=== PATIENT | male | born 1985 | race Two or more races ===

== ENCOUNTER 2025-04-15 11:44 | Inpatient (IN) | payer MEDICAID ==
[~2025-04-15] VITALS: Ht 185.4 cm; Wt 97.3 kg
--- NOTE | 2025-04-15 11:59 | ED.PDOC ---
History of Present Illness HPI Comments 40-year-old male brought by paramedics because of left lower extremity swelling which started three days ago progressively getting worse. Patient was seen here yesterday for the same symptoms for which he left against medical advice. He denies any history of hypertension diabetes. He does have a history of swelling of his left lower extremity for many years on and off uses after every three months the redness and swelling reappears. Denies shortness a breath chest pain. Denies any other symptoms. Time Seen by MD: 11:50 Primary Care Provider: OC Reviewed Notes: Nurses Notes, Medications, Allergies Allergies: Coded Allergies: NO KNOWN ALLERGIES (Unverified , 11/26/20) Information Source: Patient, Emergency Med Personnel Mode of Arrival: EMS Severity: Moderate Timing: Days Duration: Since onset Past Medical History PAST MEDICAL HISTORY: Denies Surgical History: Denies all surgeries Social History Smoker: Non-Smoker Alcohol: Denies ETOH Use Drugs: Denies Drug Use Constitutional: denies: chills, diaphoresis, fatigue, fever, malaise, sweats, weakness, others EENTM: denies: blurred vision, double vision, ear bleeding, ear discharge, ear drainage, ear pain, ear ringing, eye pain, eye redness, hearing loss, mouth pain, mouth swelling, nasal discharge, nose bleeding, nose congestion, nose pain, photophobia, tearing, throat pain, throat swelling, voice changes, others Respiratory: denies: cough, hemoptysis, orthopnea, SOB at rest, shortness of breath, SOB with excertion, stridor, wheezing, others Cardiovascular: denies: chest pain, dizzy spells, diaphoresis, Dyspnea on exertion, edema, irregular heart beat, left arm pain, lightheadedness, palpitations, PND, syncope, others Gastrointestinal: denies: abdomen distended, abdominal pain, blood streaked bowels, constipated, diarrhea, dysphagia, difficulty swallowing, hematemesis, melena, nausea, poor appetite, poor fluid intake, rectal bleeding, rectal pain, vomiting, others Genitourinary: denies: burning, dysuria, flank pain, frequency, hematuria, incontinence, penile discharge, penile sore, pain, testicle pain, testicle swelling, urgency, others Neurological: denies: dizziness, fainting, headache, left sided numbness, left sided weakness, numbness, paresthesia, pre-existing deficit, right sided numbness, right sided weakness, seizure, speech problems, tingling, tremors, weakness, others Musculoskeletal: reports: joint swelling (Left lower extremity); denies: back pain, gout, joint pain, muscle pain, muscle stiffness, neck pain, others Integumetry: denies: bruises, change in color, change in hair/nails, dryness, laceration, lesions, lumps, rash, wounds, others Allergic/Immunocompromised: denies: Difficulty Healing, Frequent Infections, Hives, Itching, others Hematologic/Lymphatic: denies: anemia, blood clots, easy bleeding, easy bruising, swollen glands, others Endocrine: denies: excessive hunger, excessive sweating, excessive thirst, excessive urination, flushing, intolerance to cold, intolerance to heat, unexplained weight gain, unexplained weight loss, others Psychiatric: denies: anxiety, bipolar disorder, depression, hopeless, panic disorder, schizophrenia, sleepless, suicidal, others Physical Exam General Appearance: Moderate Distress HEENT: Normal ENT Inspection, Pharynx Normal, TMs Normal Neck: Full Range of Motion, Non-Tender, Normal, Normal Inspection Respiratory: Chest Non-Tender, Lungs Clear, No Accessory Muscle Use, No Respiratory Distress, Normal Breath Sounds Cardiovascular: No Edema, No JVD, No Murmur, No Gallop, Normal Peripheral Pulses, Regular Rate/Rhythm Breast Exam: Deferred Gastrointestinal: No Organomegaly, Non Tender, No Pulsatile Mass, Normal Bowel Sounds, Soft Genitalia: Deferred Pelvic: Deferred Rectal: Deferred Extremities: Swelling (Left lower extremity) Musculoskeletal : Apperance: Normal Neurologic: Alert, center specialists II-XII nml as Tested, No Motor Deficits, Normal Affect, Normal Mood, No Sensory Deficits Cerebellar Function: NOT DONE Reflexes: NOT DONE Skin: Normal Color Peripheral Pulses: 3+ Radial (R), 3+ Radial (L) Lymphatic: No Adenopathy Was a procedure done? Was a procedure done?: No Differential Dx Considerations may include: Cellulitis X-Ray, Labs, Meds, VS Patient alert. Has swelling of the left lower extremity. Redness. Was seen here yesterday. Reviewed his previous visit. Establish intravenous access. Was given fluids. Was given Rocephin. Was given clindamycin. Explained to the patient. Continue monitoring. Time of 1ST Reevaluation: 11:58 Reevaluation 1ST: Unchanged Patient Education/Counseling: Diagnosis, Treatment, Prognosis Family Education/Counseling: No Family Present Departure 1 Departure Time of Disposition: :58 Impression: Primary Impression: Cellulitis Qualified Codes: L03.116 - Cellulitis of left lower limb Disposition: 09 ADMITTED INPATIENT Admit to: Med Surg Condition: Guarded Critical Care Note Critical Care Time?: Yes (90 min-critical care time only) Critical care comment: Swollen extremity continue antibiotics Stability Stability form required: No Heart Score Heart Score: Heart Score Response (Comments) Value History N/A 0 EKG N/A 0 Age N/A 0 Risk Factors N/A 0 Troponin N/A 0 Total 0 EVANGELINA LEÓN MD Apr 15, 2025 11:59
[2025-04-15] MEDS: SODIUM CHLORIDE 0.9% 1,000 ML IV ONE ×2 (12:00→14:03)
[2025-04-15 12:38] VITALS: PULSE 84; RESP 18
[2025-04-15] MEDS: cefTRIAXone 1GM/50ML D5W 50 ML IV ONE (13:23)
[2025-04-15 13:35] LABS: Hematocrit 34.1 % (41.0-53.0); Hemoglobin 11.8 g/dL (13.5-17.5); Mean Corpuscular Hemoglobin 30.1 pg (28.0-32.0); Mean Corpuscular Volume 87.0 fL (80.0-100.0); Nucleated Red Blood Cells % 0.0 %
[2025-04-15 13:42] LABS: Chloride 101 mmol/L (98-107); Potassium 3.6 mmol/L (3.5-5.1)
[2025-04-15 13:43] LABS: Anion Gap 8 (5-15); Calcium 8.9 mg/dL (8.7-10.4); Carbon Dioxide 26 mmol/L (20-31)
[2025-04-15] MEDS: MORPHINE SULFATE 4 MG/ML SYR/VIAL IV ONE (13:43)
[2025-04-15] MEDS: ONDANSETRON HCL 4 MG/2 ML VIAL IV ONE (13:43)
[2025-04-15 13:48] LABS: BUN/Creatinine Ratio 14.2 (10.0-20.0); Blood Urea Nitrogen 15 mg/dL (9-23); Glucose 99 mg/dL (74-106)
[2025-04-15 13:53] LABS: Sodium 135 mmol/L (136-145)
[2025-04-15] MEDS: CLINDAMYCIN 600MG IV 50 ML IV ONE (14:02)
[2025-04-15 22:02] VITALS: RESP 18
[2025-04-15] MEDS: ACETAMINOPHEN 325 MG TAB PO ONE (22:42)
--- NOTE | 2025-04-15 23:34 | DVHHP2 ---
History of Present Illness History of Present Illness This is a 40-year-old male with no past medical history came to ER with the complain of left lower extremity swelling for 1 month which is worsen for last 4 days. Since yesterday morning patient having intractable pain left lower extremity which is 10/10, localized, heavy sensation, aggravated on hanging and weight-bearing especially during walking and little relief of pain when put his leg on bed/chair. Patient left yesterday with AMA. Patient stated that left lower extremity pain is also associated with swelling and increased redness day by day. Patient noticed she had similar symptoms before approximately 8 years ago and getting better after treatment. Symptoms also associated with malaise, fatigue, generalized weakness, loss of appetite. Patient using fentanyl snoring every day. Currently denies any headache, chest pain, SOB, headache, abdominal pain, dysuria. Denies any recent history of trauma, injury, MVA, no recent sick contact. Past Medical History: Denies Surgical History: Denies all surgeries Social History Smoker: Smoking cigarettes ,5 stick per day Alcohol: Denies ETOH Use Drugs: use fentanyl smoking Allergy: No known allergy PCP: Not selected Review of Systems Constitutional: Yes: Weakness, Malaise; No: Fever, Chills, Sweats, Other Eyes: No: Pain, Vision change, Conjunctivae inflammation, Eyelid inflammation, Other, Redness ENT: No: Ear pain, Ear discharge, Nose pain, Nose discharge, Nose congestion, Mouth pain, Mouth swelling, Throat pain, Throat swelling, Other Respiratory: No: Cough, Dry, Shortness of breath, SOB with excertion, Wheezing, Hemoptysis, Pleuritic Pain, Sputum, Wheezing, Other Cardiovascular: Other; No: Chest Pain, Palpitations, Orthopnea, Paroxysmal Noc. Dyspnea, Edema, Lt Headedness Gastrointestinal: Nausea; No: Vomiting, Abdominal Pain, Diarrhea, Constipation, Melena, Hematochezia, Other Genitourinary: No Dysuria, No Frequency, No Incontinence, No Hematuria, No Retention, No Other Musculoskeletal: leg pain (Left leg pain associated swelling), foot pain; No: other, neck pain, shoulder pain, arm pain, back pain, hand pain Skin: Rash, Other (Erythematous lesion left lower extremity); No: Lesions, Jaundice, Bruising Neurological: No: Weakness, Numbness, Incoordination, Change in speech, Confusion, Seizures, Other Allergies: Coded Allergies: NO KNOWN ALLERGIES (Unverified , 11/26/20) Exam Vital Signs Vital Signs Date Time Temp Pulse Resp B/P (MAP) Pulse Ox O2 Delivery O2 Flow Rate FiO2 04/15/25 22:42 100.4 04/15/25 22:14 75 18 99/47 (64) 100 04/15/25 22:02 Room Air* 0 21 General Appearance: Alert, Oriented X3, Cooperative HEENT: Atraumatic, PERRLA, EOMI Respiratory: Clear to auscultation Cardiovascular: Regular rate, Normal S1, Normal S2 Abdominal: Normal bowel sounds, Soft, No tenderness, No hepatospenomegaly Extremities: No clubbing, No cyanosis, Normal pulses, Other (Left lower extremity swelling and erythematous lesion, 1+ pitting edema left lower extremity, tender on palpation, local raise of temperature) Neuro: Normal speech, Strength at 5/5 X4 ext, Other Labs/Xrays Labs Test 04/15/25 13:22 Range/Units White Blood Count 8.4 4.4-10.8 10^3/uL Red Blood Count 3.92 L 4.5-5.90 10^6/uL Hemoglobin 11.8 L 13.5-17.5 g/dL Hematocrit 34.1 L 41.0-53.0 % Mean Corpuscular Volume 87.0 80.0-100.0 fL Mean Corpuscular Hemoglobin 30.1 28.0-32.0 pg Mean Corpuscular Hemoglobin Concent 34.5 32.0-36.0 g/dL Red Cell Distribution Width 13.3 11.8-14.3 % Platelet Count 228 140-450 10^3/uL Mean Platelet Volume 8.5 6.9-10.8 fL Neutrophils (%) (Auto) 81.5 H 37.0-80.0 % Lymphocytes (%) (Auto) 7.8 L 10.0-50.0 % Monocytes (%) (Auto) 10.4 0.0-12.0 % Eosinophils (%) (Auto) 0.0 0.0-7.0 % Basophils (%) (Auto) 0.3 0.0-2.0 % Neutrophils # (Auto) 6.9 1.6-8.6 10 ^3/uL Lymphocytes # (Auto) 0.7 0.4-5.4 10 ^3/uL Monocytes # (Auto) 0.9 0-1.3 10 ^3/uL Eosinophils # (Auto) 0 0-0.8 10 ^3/uL Basophils # (Auto) 0 0-0.2 10 ^3/uL Nucleated Red Blood Cells 0.0 % Sodium Level 135 L 136-145 mmol/L Potassium Level 3.6 3.5-5.1 mmol/L Chloride Level 101 98-107 mmol/L Carbon Dioxide Level 26 20-31 mmol/L Anion Gap 8 5-15 Blood Urea Nitrogen 15 9-23 mg/dL Creatinine 1.06 0.700-1.30 mg/dL Glomerular Filtration Rate Calc 92 >90 mL/min BUN/Creatinine Ratio 14.2 10.0-20.0 Serum Glucose 99 74-106 mg/dL Lactic Acid Level 1.0 0.4-2.0 mmol/L Calcium Level 8.9 8.7-10.4 mg/dL SEPSIS Sepsis Screen Date sepsis recognized/suspect: Apr 15, 2025 Time Sepsis recognized/suspect: 2204 Recent Procedure: No On Antibiotic Therapy: No Respiratory Rate >20: No Heart Rate >90: No Temp<36 C (96.8 F) or >38.3 C: No SBP <90 or MAP <65 mmHG: No New Acute Mental Status Change: No Is the patient on CPAP, BIPAP,: No Vital Signs Date Time Temp Pulse Resp B/P (MAP) Pulse Ox O2 Delivery O2 Flow Rate FiO2 04/15/25 22:42 100.4 04/15/25 22:14 100.4 75 18 99/47 (64) 100 100.4 04/15/25 22:02 18 Room Air* 0 21 04/15/25 19:18 74 16 102/59 (73) 98 04/15/25 17:47 79 04/15/25 17:34 73 18 109/66 (80) 99 Laboratory Tests Test 04/15/25 13:22 Lactic Acid Level 1.0 mmol/L (0.4-2.0) White Blood Count 8.4 10^3/uL (4.4-10.8) Medications Medications Dose Ordered Sig/Alessandro Route Start Time Stop Time Status Last Admin Dose Admin Acetaminophen 650 mg ONCE ONCE PO 04/15/25 22:15 04/15/25 22:16 DC 04/15/25 22:42 650 MG Ceftriaxone Sodium 50 ml @ 100 mls/hr ONCE ONCE IV 04/15/25 12:00 04/15/25 12:29 DC 04/15/25 13:23 100 MLS/HR Clindamycin Phosphate 50 ml @ 50 mls/hr ONCE ONCE IV 04/15/25 12:00 04/15/25 12:59 DC 04/15/25 14:02 50 MLS/HR Morphine Sulfate 4 mg ONCE ONCE IV 04/15/25 13:30 04/15/25 13:31 DC 04/15/25 13:43 4 MG Ondansetron HCl 4 mg ONCE ONCE IV 04/15/25 13:30 04/15/25 13:31 DC 04/15/25 13:43 4 MG Sodium Chloride 1,000 ml @ 150 mls/hr Q6H40M ONCE IV 04/15/25 12:00 04/15/25 18:39 DC 04/15/25 14:03 150 MLS/HR Sodium Chloride 1,000 ml @ 1,000 mls/hr Q1H ONCE IV 04/15/25 12:00 04/15/25 12:59 DC 04/15/25 12:00 1,000 MLS/HR Assessment/Plan Assessment/Plan # Left lower extremity cellulitis -Patient came with left lower extremity swelling and pain -On examination tender on palpation, erythematous, local swelling present. -No leukocytosis but left-shifted(neutrophil 81.5) -In ER, received clindamycin, ceftriaxone, NSS, morphine, ondansetron -CXR-no cardiopulmonary active disease -CT left lower extremity without contrast: Diffuse subcutaneous soft-tissue edema and swelling is present; possibly cellulitis. -Lactic acid 1.0 -Zosyn IV and vancomycin IV. -NSS 125 cc/hours -Urine culture and blood culture follow -A1c, lipid profile, THS, PT PTT, BNP -Venous Dopplex LLE. # Normocytic normochromic Anemia -Hemoglobin level 11.8, HCT 34.1 -MCH 30.1, MCV 87.0 -No signs symptoms of active bleeding # Substance abuse disorder -Smoking cigarettes ,5 stick per day -Use fentanyl snoring, last use yesterday -patient planning to go rehab -Counseling done more than 10 minute spent. # OBESITY, BMI 28.6 -Lifestyle modification Diet: Regular GI prophylaxis: Famotidine 20 mg p.o. b.i.d. DVT prophylaxis: Lovenox 30 mg sc daily. Goals of care discussions, more than 27 minute spent with the patient. Full code status. Case discussed with Dr. Medina Plan discussed with: Patient, Other (Nurse) Date of Service: Apr 15, 2025 Billing Provider: JOON MEDINA MD Common Visit Codes: [id number] INP/OBS CARE (HIGH) Secondary Visit Codes: 74901-[id number] CARE PLAN 30 MINUTES HEBERT RODRIGUEZ RESIDENT Apr 15, 2025 23:34
[2025-04-15] MEDS ORDERED: NITROGLYCERIN 0.4 MG SL TAB SL PRN (23:45)
[2025-04-15] MEDS ORDERED: MORPHINE SULFATE INJ 2 MG/ml SYRG IV PRN (23:45)
[2025-04-16] VITALS (8 sets, daily range): BP systolic 95–114; BP diastolic 53–84; PULSE 58–65; RESP 16–18; TEMP 97.9–99.4; O2SAT 95–100
[2025-04-16] MEDS ORDERED: VANCOMYCIN PER PHARMACY 0 MG IV SCH (00:30)
[2025-04-16] MEDS: SODIUM CHLORIDE 0.9% 1,000 ML IV SCH (00:39)
--- NOTE | 2025-04-16 01:13 | DVH ---
CHEST RADIOGRAPH Indication: Rule out cardiopulmonary disease Technique: Single frontal view of the chest was obtained COMPARISON: None FINDINGS: Lines and Tubes: None Lungs: Clear Pleura: No effusion. No pneumothorax. Cardiomediastinal contours: Unremarkable Bones: Unremarkable IMPRESSION: 1. No acute disease.
[2025-04-16 03:35] LABS: Urine Protein, UAD Negative (Negative)
[2025-04-16] MEDS: PIPERACILLIN-TAZOB 3.375GM 100 ML IV SCH (05:17)
--- NOTE | 2025-04-16 05:31 | DVH ---
INDICATION: Left lower extremity cellulitis COMPARISON: None TECHNIQUE: CT of the left lower extremity was performed without contrast. Volume transverse images we re obtained and reconstructed in multiple planes using bone and soft tissue algorithms. Radiation Dose Information: CT Dose: CTDI volume is 7.75 mGy. Dose-length product is 437.6 mGy*cm FINDINGS: The alignment is normal. The joint spaces are normal. There is no fracture, dislocation or aggressive osseous lesion. There is no joint effusion. Diffuse subcutaneous soft-tissue edema and swelling. IMPRESSION: Diffuse subcutaneous soft-tissue edema and swelling is present; possibly cellulitis.
--- NOTE | 2025-04-16 08:44 | DVH ---
Clinical History: Left lower extremity swelling Comparison: None Technique: Duplex Doppler evaluation of the deep venous system of the left lower extremity from the common femor al vein to the popliteal vein including color Doppler and spectral/pulsed waveform analysis was perfo rmed. Findings: The common femoral vein demonstrates appropriate compressibility and waveform variability. There is compressibility/patency of the great saphenous vein at the proximal thigh. The femoral vein demonstrates appropriate compressibility and waveform variability. The deep femoral vein demonstrates appropriate compressibility and waveform variability. The popliteal vein demonstrates appropriate compressibility and waveform variability. There is normal compressibility at the tibioperoneal trunk. Impression: No leftdeep venous thrombosis. If clinical concern/symptoms persist or worsen, short-interval follow-up study is suggested.
--- NOTE | 2025-04-16 10:49 | DVHPNRES ---
Progress Note Date Seen: Apr 16, 2025 Resident Creating Document: NIKO MAYER RESIDENT Medical Necessity Reason Pt with a Central, PICC or Fol: No Subjective Review of Systems Kali Altamirano is a 40-year-old male with no significant past medical or surgical history. He came to ER with the complain of left lower extremity swelling for 1 month which is worsening for last 4 days. The swelling started from the left foot and has increased to involve left leg up to the knees. Since yesterday morning he is experiencing intractable pain left lower extremity. The pain is 10/10, localized, heavy sensation, aggravated on walking and weight- bearing; Without relieving factors. He visited the emergency department yesterday and left yesterday with AMA. He experienced an episode of SOB and chest pain due to the pain in the lower extremity. He started having lower limb swelling since last 8 years, which resolves on its own. Has been having these recurring episodes every few years. He reports since last year, episodes have been every few months. Symptoms are associated with malaise, fatigue, generalized weakness, loss of appetite. He reports using fentanyl every day. He denies any headache, fever, abdominal pain, dysuria. Denies any recent history of trauma, injury, animal bite, or travel. In ED, he received clindamycin, ceftriaxone, NSS, morphine, ondansetron He was examined at bedside today. He continues to complain of pain, increased swelling and redness. CT lower extremity shows subcutaneous soft tissue edema, swelling. CXR shows no abnormality. Doppler US lower extremity revealed no thrombosis. Personal history: Smokes fentanyl, reports no other recreational drug use. Occasionally smokes marijuana. Smokes 4-5 cigarettes per day, does not use alcohol. Lives at home with his father. Past History: Gout (no home medications) ROS: Constitutional: Denies weight loss, fever and chills. HEENT: Denies changes in vision and hearing. Respiratory: Denies shortness of breath and cough Cardiovascular: Denies chest discomfort or palpitations GI: Denies abdominal pain, nausea, vomiting and diarrhea. : Denies dysuria and urinary frequency. Musculoskeletal: Pain in left lower extremity under the knee. Associated with swelling, redness. Skin: Complains of intense age on the left foot and leg Neurological: Denies dizziness, headache, vision or hearing problems Objective vital signs Vital Sign Date Time Temp Pulse Resp B/P (MAP) Pulse Ox O2 Delivery O2 Flow Rate FiO2 04/16/25 09:30 98.5 58 16 105/65 (78) 99 98.5 04/16/25 02:52 Room Air* 0 21 Total Intake and Output 04/15/25 04/15/25 04/16/25 15:00 23:00 07:00 Intake Total 1050 ml 800 ml 0 ml Balance 1050 ml 800 ml 0 ml medications Current Medications Medications Dose Ordered Sig/Alessandro Route Start Time Stop Time Status Last Admin Dose Admin Nitroglycerin 0.4 mg Q5MINP PRN SL 04/15/25 23:45 Morphine Sulfate 2 mg Q30M PRN IV 04/15/25 23:45 Sodium Chloride 1,000 ml @ 125 mls/hr Q8H IV 04/15/25 23:45 04/16/25 00:39 125 MLS/HR Enoxaparin Sodium 40 mg DAILY SC 04/16/25 10:00 Piperacillin Sod/ Tazobactam Sod 100 ml @ 25 mls/hr Q8HR IV 04/16/25 06:00 04/16/25 05:17 25 MLS/HR Vancomycin HCl 0 ml @ 0 mls/hr UD IV 04/16/25 00:30 Famotidine 20 mg Q12HR PO 04/16/25 10:00 Vancomycin HCl 150 ml @ 150 mls/hr Q8H IV 04/16/25 13:00 Examination General: Patient alert and oriented in person, place and time. Patient following commands. HEENT: Normocephalic, atraumatic, moist mucous membranes Respiratory/pulmonary: Clear lungs bilaterally, no associated crackles or wheezes. Cardiovascular: Normal heart sounds S1 and S2 with no associated murmurs Abdomen: Abdomen nondistended, there is no pain to palpation in any of the abdominal quadrants, no palpable masses. Extremities: Left foot and leg swelling, erythema, tenderness. Right foot appears normal. Skin: Multiple scratch wounds, dry skin on left foot and leg. Healing scab wound on the left malleolus. Neurological: Intact cranial nerves with no focal neurologic deficits laboratory and microbiology Laboratory Tests 04/15/25 13:22 Test 04/15/25 13:22 Range/Units Serum Glucose 99 74-106 mg/dL Problem List/Assessment/Plan Problem List/Assessment/Plan #Left lower extremity cellulitis -Fever Temprature: 100.4 -Tachypnea, RR 20 -No leukocytosis but left-shifted(neutrophil 81.5) -CXR-no cardiopulmonary active disease -CT left lower extremity without contrast reveals diffuse subcutaneous soft- tissue edema and swelling is present; possibly cellulitis. -A1c, lipid profile, THS, PT PTT, BNP -Venous Dopplex LLE negative for thrombosis. -Continue IV fluids and pain management -Continue IV vancomycin -Switch Zosyn to IV ceftriaxone -Urine culture and blood culture pending #Normocytic normochromic Anemia -Hemoglobin level 11.8, HCT 34.1 -MCH 30.1, MCV 87.0 -No signs symptoms of active bleeding #Substance abuse disorder -Use fentanyl smoking, last used yesterday. Patient planning to go rehab. -Counseling done on patient's bedside. -Drug screen pending #Obesity, with BMI 28.6 -Lifestyle modification Goals of care discussions, more than 35 minute spent with the patient. Full code Case discussed with Dr. Alston GI prophylaxis: Famotidine 20 mg DVT prophylaxis: Lovenox 30 mg Plan discussed with: Patient NIKO MAYER RESIDENT Apr 16, 2025 10:49
[2025-04-16] MEDS: ENOXAPARIN SOD 40 MG/0.4 ML SYRINGE SC SCH (11:14)
[2025-04-16] MEDS: FAMOTIDINE 20 MG TAB PO SCH (11:14)
[2025-04-16] MEDS: VANCOMYCIN 750mg/150ml 150 ML IV SCH (15:25)
[2025-04-16] MEDS ORDERED: ACETAMINOPHEN 325 MG TAB PO PRN (16:45)
[2025-04-16] MEDS ORDERED: IBUPROFEN 600 MG TAB PO SCH (16:45)
[2025-04-16] MEDS ORDERED: KETOROLAC TROMETH 30 MG/ML 1ML VIAL IV PRN (16:45)
[2025-04-16] MEDS ORDERED: IBUPROFEN 600 MG TAB PO PRN (17:45)
[2025-04-16] MEDS ORDERED: LORazepam 0.5 MG TAB PO PRN (17:45)
[2025-04-16] MEDS: DICYCLOMINE HCL 10 MG CAP PO SCH (17:57)
[2025-04-16] MEDS: PANTOPRAZOLE 40 MG/10 ML VIAL INJ IV SCH (17:58)
[2025-04-16] MEDS: cefTRIAXone 1GM/50ML D5W 50 ML IV SCH (17:58)
[2025-04-16 19:15] LABS: Hematocrit 30.8 % (41.0-53.0); Hemoglobin 10.5 g/dL (13.5-17.5); Mean Corpuscular Hemoglobin 29.8 pg (28.0-32.0); Mean Corpuscular Volume 87.7 fL (80.0-100.0); Nucleated Red Blood Cells % 0.1 %
[2025-04-16 19:38] LABS: Alanine Aminotransferase 28 U/L (7-40); Albumin 3.7 g/dL (3.2-4.8); Alkaline Phosphatase 108 U/L (46-116); Anion Gap 8 (5-15); BUN/Creatinine Ratio 9.5 (10.0-20.0); Calcium 9.3 mg/dL (8.7-10.4); Carbon Dioxide 26 mmol/L (20-31); Chloride 105 mmol/L (98-107); Potassium 3.9 mmol/L (3.5-5.1); Sodium 139 mmol/L (136-145); Total Protein 6.7 g/dL (5.7-8.2)
[2025-04-16 19:39] LABS: Bilirubin, Total 0.6 mg/dL (0.2-1.0)
[2025-04-16 19:40] LABS: Blood Urea Nitrogen 8 mg/dL (9-23); Glucose 126 mg/dL (74-106)
[2025-04-16 19:42] LABS: Triglycerides 103 mg/dL (< 150)
[2025-04-16 19:44] LABS: Cholesterol 116 mg/dL (< 200)
[2025-04-16 19:48] LABS: HDL Cholesterol 18 mg/dL (40-59)
[2025-04-16] MEDS: HYDROcodone-ACET 5/325MG TAB PO SCH (20:00)
[2025-04-16 21:52] LABS: Opiate Scree,Urine Neg (NEGATIVE)
[2025-04-16 21:53] LABS: Cannabinoid Screen, Urine Pos (NEGATIVE)
[2025-04-16 21:55] LABS: Amphetamine Screen, Urine Pos (NEGATIVE); Barbiturate Scree,Urine Neg (NEGATIVE); Benzodiazephine Screen, Urine Neg (NEGATIVE); Cocaine Screen, Urine Neg (NEGATIVE); Phencyclidine Screen, Urine Neg (NEGATIVE)
[2025-04-17] VITALS (8 sets, daily range): BP systolic 93–126; BP diastolic 45–74; PULSE 41–71; RESP 16–18; TEMP 97.8–98.9; O2SAT 17–100
[2025-04-17] MEDS ORDERED: VANCOMYCIN 750mg/150ml 150 ML IV SCH (15:00)
[2025-04-17] MEDS: VANCOMYCIN 750mg/150ml 150 ML IV SCH (15:17)
--- NOTE | 2025-04-17 18:34 | DVHPNRES ---
Progress Note Date Seen: Apr 17, 2025 Resident Creating Document: NIKO MAYER RESIDENT Medical Necessity Reason Pt with a Central, PICC or Fol: No Subjective Review of Systems Kali Altamirano is a 40-year-old male with no significant past medical or surgical history. He came to ER with the complain of left lower extremity swelling for 1 month which is worsening for last 4 days. The swelling started from the left foot and has increased to involve left leg up to the knees. Since yesterday morning he is experiencing intractable pain left lower extremity. The pain is 10/10, localized, heavy sensation, aggravated on walking and weight- bearing; Without relieving factors. He visited the emergency department yesterday and left yesterday with AMA. He experienced an episode of SOB and chest pain due to the pain in the lower extremity. He started having lower limb swelling since last 8 years, which resolves on its own. Has been having these recurring episodes every few years. He reports since last year, episodes have been every few months. Symptoms are associated with malaise, fatigue, generalized weakness, loss of appetite. He reports using fentanyl every day. He denies any headache, fever, abdominal pain, dysuria. Denies any recent history of trauma, injury, animal bite, or travel. In ED, he received clindamycin, ceftriaxone, NSS, morphine, ondansetron 04/16/25: He continues to complain of pain, increased swelling and redness. CT lower extremity shows subcutaneous soft tissue edema, swelling. Marked the lower extremity with a marker to monitor size over time. CXR shows no abnormality. Doppler US lower extremity revealed no thrombosis. Personal history: Smokes fentanyl, reports no other recreational drug use. Occasionally smokes marijuana. Smokes 4-5 cigarettes per day, does not use alcohol. Lives at home with his father. Past History: Gout (no home medications) 04/17/25: He was examined at bedside today. Complains of withdrawal from fentanyl, is experiencing body aches. His pain has reduced since yesterday, complains of 4 on 10 pain in the left lower extremity. Erythema appears to be reduced from yesterday. Labs show hemoglobin down to 10.5, BUN 8, glucose 126. Toxicology shows fentanyl, amphetamines, cannabinoids. Urine analysis WNL. ROS: Constitutional: Denies weight loss, fever and chills. HEENT: Denies changes in vision and hearing. Respiratory: Denies shortness of breath and cough Cardiovascular: Denies chest discomfort or palpitations GI: Denies abdominal pain, nausea, vomiting and diarrhea. : Denies dysuria and urinary frequency. Musculoskeletal: Pain in left lower extremity under the knee. Associated with swelling, redness. Skin: Complains of intense age on the left foot and leg Neurological: Denies dizziness, headache, vision or hearing problems Objective vital signs Vital Sign Date Time Temp Pulse Resp B/P (MAP) Pulse Ox O2 Delivery O2 Flow Rate FiO2 04/17/25 17:19 98.2 41 18 111/63 (79) 99 98.2 04/17/25 08:00 Room Air* 0 21 Total Intake and Output 04/16/25 04/16/25 04/17/25 15:00 23:00 07:00 Intake Total 330 ml 1150 ml 650 ml Output Total 900 ml 1200 ml Balance 330 ml 250 ml -550 ml medications Current Medications Medications Dose Ordered Sig/Alessandro Route Start Time Stop Time Status Last Admin Dose Admin Nitroglycerin 0.4 mg Q5MINP PRN SL 04/15/25 23:45 Sodium Chloride 1,000 ml @ 125 mls/hr Q8H IV 04/15/25 23:45 04/17/25 15:17 125 MLS/HR Enoxaparin Sodium 40 mg DAILY SC 04/16/25 10:00 04/17/25 09:37 40 MG Vancomycin HCl 0 ml @ 0 mls/hr UD IV 04/16/25 00:30 Ceftriaxone Sodium 50 ml @ 100 mls/hr DAILY@09 IV 04/16/25 14:30 04/17/25 09:37 100 MLS/HR Pantoprazole Sodium 40 mg DAILY IV 04/16/25 16:45 04/17/25 09:37 40 MG Ketorolac Tromethamine 15 mg Q8HP PRN IV 04/16/25 16:45 04/21/25 16:44 Dicyclomine HCl 20 mg QID PO 04/16/25 16:45 04/17/25 12:03 20 MG Acetaminophen 325 mg Q4HP PRN PO 04/16/25 16:45 Ibuprofen 600 mg BID PRN PO 04/16/25 17:45 Acetaminophen/ Hydrocodone Bitart 1 tab Q8HR PO 04/16/25 20:00 04/17/25 14:01 1 TAB Lorazepam 1 mg Q8HP PRN PO 04/16/25 17:45 Vancomycin HCl 150 ml @ 150 mls/hr Q8H IV 04/17/25 15:00 04/17/25 15:17 150 MLS/HR Baclofen 10 mg DAILY PO 04/17/25 22:00 Examination General: Patient alert and oriented in person, place and time. Patient following commands. HEENT: Normocephalic, atraumatic, moist mucous membranes Respiratory/pulmonary: Clear lungs bilaterally, no associated crackles or wheezes. Cardiovascular: Normal heart sounds S1 and S2 with no associated murmurs Abdomen: Abdomen nondistended, there is no pain to palpation in any of the abdominal quadrants, no palpable masses. Extremities: Left foot and leg swelling, erythema, tenderness. Right foot appears normal. Skin: Multiple scratch wounds, dry skin on left foot and leg. Healing scab wound on the left malleolus. Neurological: Intact cranial nerves with no focal neurologic deficits laboratory and microbiology Laboratory Tests 04/16/25 18:50 Test 04/16/25 18:50 Range/Units Serum Glucose 126 H 74-106 mg/dL Microbiology Date/Time Source Procedure Growth Status 04/16/25 02:51 Voided Urine Urine Culture - Preliminary Resulted 04/15/25 13:22 Blood Blood Culture - Preliminary NO GROWTH AFTER 48 HOURS OF INCUBATION. Resulted Problem List/Assessment/Plan Problem List/Assessment/Plan #Left lower extremity cellulitis -Fever Temprature: 100.4 -Tachypnea, RR 20 -No leukocytosis but left-shifted(neutrophil 81.5) -CXR-no cardiopulmonary active disease -CT left lower extremity without contrast reveals diffuse subcutaneous soft- tissue edema and swelling is present; possibly cellulitis. -A1c, lipid profile, THS, PT PTT, BNP -Venous Dopplex LLE negative for thrombosis. -Continue IV fluids and pain management -Continue IV vancomycin -Switch Zosyn to IV ceftriaxone -Urine culture and blood culture pending #Normocytic normochromic Anemia -Hemoglobin level 11.8, HCT 34.1 -MCH 30.1, MCV 87.0 -No signs symptoms of active bleeding #Substance abuse disorder -Use fentanyl smoking, last used yesterday. Patient planning to go rehab. -Counseling done on patient's bedside. -Drug screen positive for fentanyl, amphetamines, cannabinoids #Obesity, with BMI 28.6 -Lifestyle modification Goals of care discussions, more than 25 minute spent with the patient. Full code Case discussed with Dr. Alston GI prophylaxis: Famotidine 20 mg DVT prophylaxis: Lovenox 30 mg Plan discussed with: Patient My Orders My Orders Orders - NIKO MAYER RESIDENT Procedure Category Date Status Time Elevate Each Leg HUGO 04/17/25 In Process Pillow P 15:50 Complete Blood Count LAB 04/18/25 Verified 04:00 Comprehensive LAB 04/18/25 Verified Metabolic Panel 04:00 NIKO MAYER RESIDENT Apr 17, 2025 18:34
[2025-04-17] MEDS: BACLOFEN 10 MG TAB PO SCH (22:33)
[2025-04-18 01:00] VITALS: BP 121/82; PULSE 62; RESP 18; TEMP 98; O2SAT 99
[2025-04-18 05:00] VITALS: BP 120/62; PULSE 57; RESP 18; TEMP 97.7; O2SAT 100
[2025-04-18 05:29] LABS: Hematocrit 30.1 % (41.0-53.0); Hemoglobin 10.6 g/dL (13.5-17.5); Mean Corpuscular Hemoglobin 31.0 pg (28.0-32.0); Mean Corpuscular Volume 87.5 fL (80.0-100.0); Nucleated Red Blood Cells % 0.1 %
[2025-04-18 05:46] LABS: Alanine Aminotransferase 32 U/L (7-40); Albumin 3.8 g/dL (3.2-4.8); Anion Gap 9 (5-15); BUN/Creatinine Ratio 9.0 (10.0-20.0); Bilirubin, Total 0.5 mg/dL (0.2-1.0); Calcium 9.4 mg/dL (8.7-10.4); Carbon Dioxide 26 mmol/L (20-31); Glucose 88 mg/dL (74-106); Potassium 3.7 mmol/L (3.5-5.1); Sodium 143 mmol/L (136-145); Total Protein 6.8 g/dL (5.7-8.2)
[2025-04-18 05:56] LABS: Alkaline Phosphatase 123 U/L (46-116); Blood Urea Nitrogen 8 mg/dL (9-23); Chloride 108 mmol/L (98-107)
[2025-04-18 08:58] VITALS: BP 123/68; PULSE 69; RESP 17; TEMP 98; O2SAT 99
--- NOTE | 2025-04-18 10:10 | DVHDSRES ---
Discharge Summary Date of Admission Resident Creating Document: NIKO MAYER RESIDENT Apr 15, 2025 at 23:31 Date of Discharge: Apr 18, 2025 Admitting Diagnosis Left lower extremity cellulitis Wounds: Multiple scab wounds on bilateral feet on admission. Labs/Diagnostic Data: Laboratory Results Test 04/18/25 03:46 04/17/25 12:30 04/16/25 18:50 04/16/25 02:51 White Blood Count 6.8 10^3/uL (4.4-10.8) Red Blood Count 3.44 10^6/uL (4.5-5.90) Hemoglobin 10.6 g/dL (13.5-17.5) Hematocrit 30.1 % (41.0-53.0) Mean Corpuscular Volume 87.5 fL (80.0-100.0) Mean Corpuscular Hemoglobin 31.0 pg (28.0-32.0) Mean Corpuscular Hemoglobin Concent 35.4 g/dL (32.0-36.0) Red Cell Distribution Width 13.6 % (11.8-14.3) Platelet Count 275 10^3/uL (140-450) Mean Platelet Volume 9.3 fL (6.9-10.8) Neutrophils (%) (Auto) 70.3 % (37.0-80.0) Lymphocytes (%) (Auto) 21.2 % (10.0-50.0) Monocytes (%) (Auto) 8.0 % (0.0-12.0) Eosinophils (%) (Auto) 0.0 % (0.0-7.0) Basophils (%) (Auto) 0.5 % (0.0-2.0) Neutrophils # (Auto) 4.8 10 ^3/uL (1.6-8.6) Lymphocytes # (Auto) 1.4 10 ^3/uL (0.4-5.4) Monocytes # (Auto) 0.5 10 ^3/uL (0-1.3) Eosinophils # (Auto) 0 10 ^3/uL (0-0.8) Basophils # (Auto) 0 10 ^3/uL (0-0.2) Nucleated Red Blood Cells 0.1 % Sodium Level 143 mmol/L (136-145) Potassium Level 3.7 mmol/L (3.5-5.1) Chloride Level 108 mmol/L (98-107) Carbon Dioxide Level 26 mmol/L (20-31) Anion Gap 9 (5-15) Blood Urea Nitrogen 8 mg/dL (9-23) Creatinine 0.89 mg/dL (0.700-1.30) Glomerular Filtration Rate Calc 112 mL/min (>90) BUN/Creatinine Ratio 9.0 (10.0-20.0) Serum Glucose 88 mg/dL (74-106) Calcium Level 9.4 mg/dL (8.7-10.4) Total Bilirubin 0.5 mg/dL (0.2-1.0) Aspartate Amino Transferase (AST) 39 U/L (13-40) Alanine Aminotransferase (ALT) 32 U/L (7-40) Alkaline Phosphatase 123 U/L (46-116) Total Protein 6.8 g/dL (5.7-8.2) Albumin 3.8 g/dL (3.2-4.8) Vancomycin Level Trough 11.8 ug/mL (5-10) Hemoglobin A1c 5.4 % A1C (<5.7) B-Type Natriuretic Peptide 126.50 pg/mL (0-100) Triglycerides Level 103 mg/dL (< 150) Cholesterol Level 116 mg/dL (< 200) LDL Cholesterol 80 mg/dL (< 100) HDL Cholesterol 18 mg/dL (40-59) Thyroid Stimulating Hormone (TSH) 0.36 uIU/mL (0.55-4.78) Urine Color Light-yellow (Yellow) Urine Clarity Clear (Clear) Urine pH 6.0 (5.0-9.0) Urine Specific [place] 1.005 (1.001-1.035) Urine Protein Negative (Negative) Urine Ketones Negative (Negative) Urine Blood Negative /uL (Negative) Urine Nitrite Negative (Negative) Urine Bilirubin Negative (Negative) Urine Urobilinogen Normal mg/dL (Negative) Urine Leukocyte Esterase Negative /uL (Negative) Urine RBC <1 /hpf (0 - 3) Urine Microscopic WBC 1 /HPF (0-3) Urine Squamous Epithelial Cells None seen /hpf (<5) Urine Bacteria None seen /hpf (None Seen) Urine Glucose Normal mg/dL (Normal) Urine Opiates Screen Neg (NEGATIVE) Urine Fentanyl Screen Pos (NEGATIVE) Urine Barbiturates Screen Neg (NEGATIVE) Urine Phencyclidine Screen Neg (NEGATIVE) Urine Amphetamines Screen Pos (NEGATIVE) Urine Benzodiazepines Screen Neg (NEGATIVE) Urine Cocaine Screen Neg (NEGATIVE) Urine Cannabinoids Screen Pos (NEGATIVE) Test 04/15/25 13:22 Lactic Acid Level 1.0 mmol/L (0.4-2.0) Other Laboratory Tests 04/18/25 03:46 Brief Hx & Hospital Course: Kali Altamirano is a 40-year-old male with history of gout, no home medications. He came to ER with the complain of left lower extremity swelling for 1 month which is worsening for last few days. The swelling started from the left foot and has increased to involve left leg up to the knees. The pain was 10/10, localized, heavy sensation, aggravated on walking and weight-bearing; Without relieving factors. He visited the emergency department yesterday and left yesterday with AMA to smoke fentanyl. He experienced an episode of SOB and chest pain due to the pain in the lower extremity. He started having lower limb swelling since last 8 years, which resolves on its own. Has been having these recurring episodes every few years. He reports since last year, episodes have been every few months. Symptoms are associated with malaise, fatigue, generalized weakness, loss of appetite. He reportd using fentanyl every day. He denies any headache, fever, abdominal pain, dysuria. Denied any recent history of trauma, injury, animal bite, or travel. In ED, he received clindamycin, ceftriaxone, NSS, morphine, ondansetron. During his stay, we obtained CT lower extremity that revealed subcutaneous soft tissue edema, swelling. Marked the lower extremity with a marker to monitor size over time. CXR shows no abnormality. Doppler US lower extremity revealed no thrombosis. He had tachycardia, tachypnea. His toxicology showed fentanyl, amphetamines, cannabinoids. He was managed with IV fluids and pain management IV vancomycin and ceftriaxone. His pain has reduced since admission. Erythema and swelling have significantly reduced. Consulted dialysis social worker for help with new PCP. Counseled on drug abuse, he reports starting rehab this Wednesday. He is stable for discharge on oral antibiotics and close follow up with PCP. Discharge plan: Please follow up in discharge clinic in 1 week Please continue Augmentin 875 mg twice daily for 7 days. Please continue doxycycline 100 mg twice daily for 7 days. Please elevate your limb elevated with a pillow. Operations or Procedures Left lower extremity swelling Comparison: None Technique: Duplex Doppler evaluation of the deep venous system of the left lower extremity from the common femoral vein to the popliteal vein including color Doppler and spectral/pulsed waveform analysis was performed. Findings: The common femoral vein demonstrates appropriate compressibility and waveform variability. There is compressibility/patency of the great saphenous vein at the proximal thigh. The femoral vein demonstrates appropriate compressibility and waveform variability. The deep femoral vein demonstrates appropriate compressibility and waveform variability. The popliteal vein demonstrates appropriate compressibility and waveform variability. There is normal compressibility at the tibioperoneal trunk. Impression: No leftdeep venous thrombosis. --- Left lower extremity cellulitis COMPARISON: None TECHNIQUE: CT of the left lower extremity was performed without contrast. Volume transverse images were obtained and reconstructed in multiple planes using bone and soft tissue algorithms. Radiation Dose Information: CT Dose: CTDI volume is 7.75 mGy. Dose-length product is 437.6 mGy*cm FINDINGS: The alignment is normal. The joint spaces are normal. There is no fracture, dislocation or aggressive osseous lesion. There is no joint effusion. Diffuse subcutaneous soft-tissue edema and swelling. IMPRESSION: Diffuse subcutaneous soft-tissue edema and swelling is present; possibly cellulitis. --- CHEST RADIOGRAPH Indication: Rule out cardiopulmonary disease Technique: Single frontal view of the chest was obtained COMPARISON: None FINDINGS: Lines and Tubes: None Lungs: Clear Pleura: No effusion. No pneumothorax. Cardiomediastinal contours: Unremarkable Bones: Unremarkable IMPRESSION: 1. No acute disease. Condition at Discharge: Stable Final Diagnosis/Problems List Rapidly progressive left lower extremity cellulitis Normocytic normochromic Anemia Substance abuse disorder Obesity, with BMI 28.6 Discharge Disposition: Home Discharge Instruct/Medications Diet: Regular Medication Profile: No Active Prescriptions or Reported Meds Care Plan: Please continue Augmentin 875 mg twice daily for 7 days Please continue doxycycline 100 mg twice daily for 7 days Please restrict daily required activities as tolerated and elevate your limb elevated with a pillow Please follow up in discharge clinic in 1 week No Active Prescriptions or Reported Meds Discharge Statement: "Patient was advised to return to the ER or call 911 if any headaches, dizziness, shortness of breath, chest pain, abdominal pain, bleeding, fevers, or worsening of medical condition. Patient was counseled about treatment plan, medications, possible side effects, patientverbalized understanding. All questions were answered to the best of my ability. This discharge took greater then 30 minutes in planning, reviewing documentation, counseling the patient, and discussing with other team members." ASSESSMENT ASSESSMENT Assessment NIKO MAYER RESIDENT Apr 18, 2025 10:10
--- NOTE | 2025-04-18 10:57 | DVHINCON2 ---
Date of Service if different f: Apr 18, 2025 Consultation ([place]) Labs Laboratory Tests Test 04/15/25 13:22 04/16/25 02:51 04/16/25 18:50 04/17/25 12:30 Lactic Acid Level 1.0 mmol/L (0.4-2.0) Urine Color Light-yellow (Yellow) Urine Clarity Clear (Clear) Urine pH 6.0 (5.0-9.0) Urine Specific [place] 1.005 (1.001-1.035) Urine Protein Negative (Negative) Urine Ketones Negative (Negative) Urine Blood Negative /uL (Negative) Urine Nitrite Negative (Negative) Urine Bilirubin Negative (Negative) Urine Urobilinogen Normal mg/dL (Negative) Urine Leukocyte Esterase Negative /uL (Negative) Urine RBC <1 /hpf (0 - 3) Urine Microscopic WBC 1 /HPF (0-3) Urine Squamous Epithelial Cells None seen /hpf (<5) Urine Bacteria None seen /hpf (None Seen) Urine Glucose Normal mg/dL (Normal) Urine Opiates Screen Neg (NEGATIVE) Urine Fentanyl Screen Pos (NEGATIVE) Urine Barbiturates Screen Neg (NEGATIVE) Urine Phencyclidine Screen Neg (NEGATIVE) Urine Amphetamines Screen Pos (NEGATIVE) Urine Benzodiazepines Screen Neg (NEGATIVE) Urine Cocaine Screen Neg (NEGATIVE) Urine Cannabinoids Screen Pos (NEGATIVE) Hemoglobin A1c 5.4 % A1C (<5.7) B-Type Natriuretic Peptide 126.50 pg/mL (0-100) Triglycerides Level 103 mg/dL (< 150) Cholesterol Level 116 mg/dL (< 200) LDL Cholesterol 80 mg/dL (< 100) HDL Cholesterol 18 mg/dL (40-59) Thyroid Stimulating Hormone (TSH) 0.36 uIU/mL (0.55-4.78) Vancomycin Level Trough 11.8 ug/mL (5-10) Test 04/18/25 03:46 White Blood Count 6.8 10^3/uL (4.4-10.8) Red Blood Count 3.44 10^6/uL (4.5-5.90) Hemoglobin 10.6 g/dL (13.5-17.5) Hematocrit 30.1 % (41.0-53.0) Mean Corpuscular Volume 87.5 fL (80.0-100.0) Mean Corpuscular Hemoglobin 31.0 pg (28.0-32.0) Mean Corpuscular Hemoglobin Concent 35.4 g/dL (32.0-36.0) Red Cell Distribution Width 13.6 % (11.8-14.3) Platelet Count 275 10^3/uL (140-450) Mean Platelet Volume 9.3 fL (6.9-10.8) Neutrophils (%) (Auto) 70.3 % (37.0-80.0) Lymphocytes (%) (Auto) 21.2 % (10.0-50.0) Monocytes (%) (Auto) 8.0 % (0.0-12.0) Eosinophils (%) (Auto) 0.0 % (0.0-7.0) Basophils (%) (Auto) 0.5 % (0.0-2.0) Neutrophils # (Auto) 4.8 10 ^3/uL (1.6-8.6) Lymphocytes # (Auto) 1.4 10 ^3/uL (0.4-5.4) Monocytes # (Auto) 0.5 10 ^3/uL (0-1.3) Eosinophils # (Auto) 0 10 ^3/uL (0-0.8) Basophils # (Auto) 0 10 ^3/uL (0-0.2) Nucleated Red Blood Cells 0.1 % Sodium Level 143 mmol/L (136-145) Potassium Level 3.7 mmol/L (3.5-5.1) Chloride Level 108 mmol/L (98-107) Carbon Dioxide Level 26 mmol/L (20-31) Anion Gap 9 (5-15) Blood Urea Nitrogen 8 mg/dL (9-23) Creatinine 0.89 mg/dL (0.700-1.30) Glomerular Filtration Rate Calc 112 mL/min (>90) BUN/Creatinine Ratio 9.0 (10.0-20.0) Serum Glucose 88 mg/dL (74-106) Calcium Level 9.4 mg/dL (8.7-10.4) Total Bilirubin 0.5 mg/dL (0.2-1.0) Aspartate Amino Transf (AST/SGOT) 39 U/L (13-40) Alanine Aminotransferase (ALT/SGPT) 32 U/L (7-40) Alkaline Phosphatase 123 U/L (46-116) Total Protein 6.8 g/dL (5.7-8.2) Albumin 3.8 g/dL (3.2-4.8) Microbiology Date/Time Source Procedure Growth Status 04/16/25 02:51 Voided Urine Urine Culture - Final Complete 04/15/25 13:22 Blood Blood Culture - Preliminary NO GROWTH AFTER 48 HOURS OF INCUBATION. Resulted Appetite: Fair Appearance: Older than stated age Psychomotor activity: WNL Behavioral: Cooperative Eye contact: Appropriate Affect: Guarded Mood: Euthymic Thought processes: Linear/Goal-directed Thought content: WNL Suicidal ideations: Absent Homicidal ideations: Absent Orientation: Person, Time, Situation Memory intact: Recent Intellect: Average Abstractability: WNL Concentration: Adequate Attention: Adequate Judgement: WNL Insight: Fair Vitals Vital Signs Date Time Temp Pulse Resp B/P (MAP) Pulse Ox O2 Delivery O2 Flow Rate FiO2 04/18/25 08:58 98.0 69 17 123/68 (86) 99 98.0 04/17/25 20:00 Room Air* 0 21 Current medications Current Medications Medications Dose Ordered Sig/Alessandro Route Start Time Stop Time Status Last Admin Dose Admin Nitroglycerin 0.4 mg Q5MINP PRN SL 04/15/25 23:45 Sodium Chloride 1,000 ml @ 125 mls/hr Q8H IV 04/15/25 23:45 04/17/25 23:45 125 MLS/HR Enoxaparin Sodium 40 mg DAILY SC 04/16/25 10:00 04/17/25 09:37 40 MG Vancomycin HCl 0 ml @ 0 mls/hr UD IV 04/16/25 00:30 Ceftriaxone Sodium 50 ml @ 100 mls/hr DAILY@09 IV 04/16/25 14:30 04/18/25 10:05 100 MLS/HR Pantoprazole Sodium 40 mg DAILY IV 04/16/25 16:45 04/18/25 10:04 40 MG Ketorolac Tromethamine 15 mg Q8HP PRN IV 04/16/25 16:45 04/21/25 16:44 Dicyclomine HCl 20 mg QID PO 04/16/25 16:45 04/18/25 06:32 20 MG Acetaminophen 325 mg Q4HP PRN PO 04/16/25 16:45 Ibuprofen 600 mg BID PRN PO 04/16/25 17:45 Acetaminophen/ Hydrocodone Bitart 1 tab Q8HR PO 04/16/25 20:00 04/18/25 06:33 1 TAB Lorazepam 1 mg Q8HP PRN PO 04/16/25 17:45 Vancomycin HCl 150 ml @ 150 mls/hr Q8H IV 04/17/25 15:00 04/18/25 06:33 150 MLS/HR Baclofen 10 mg DAILY PO 04/17/25 22:00 04/18/25 10:05 10 MG Treatment plan discussed: With staff Medication adjusted: No Diagnosis: Unspecified adjustment disorder, polysubstance use Plan : Patient presently denies suicidal/homicidal ideation. He reports pending rehab later this week Patient does not meet LPS hold criteria and may discharge after medical clearance Please provide any available outpatient resources for follow up History of Present Illness Reason for Consult : fentanyl abuse history HPI : This is a 40-year-old male presented here 4 days ago with lower L extrem ity pain and cellulitis. Patient has history of fentanyl use Patient is evaluated via telepsychiatry. He reports problems with leg pain and cellulitis for over 10 years and never sought treatment. He reports symptoms worsen in the last week and decided to come in for treatment. He reports hx of fentanyl and methamphetamine use for over 10 years. He reports last use of substances was on day of admission here. He does report wanting to achieve sobriety and enrolled into rehab starting this Wednesday. He denies feeling depressed, hopeless, or anhedonia. He denies suicidal/homicidal ideation. He denies auditory/visual hallucinations or paranoid thoughts. Past Psychiatric History : He denies prior psychiatric diagnoses. He denies prior psych admissions or holds. He denies prior suicide attempts. He denies current or history of psychotropic medications. Past Medical History : He denies Social History : He lives with father. He is not . he does have children living in [place] with former partner. He is currently unemployed, not receiving disability. He reports use of marijuana, fentanyl and methamphetamine almost daily for over 10 years. He uses nicotine, 3-4 cigs per day. His toxicology was positive for meth, fentanyl and Cannabis on admission here. he denies use of alcohol. He denies any known family history. KWESI NOLEN DNP Apr 18, 2025 10:57
[2025-04-18 12:54] VITALS: BP 118/74; PULSE 56; RESP 17; TEMP 97.8; O2SAT 99
[2025-04-18 17:18] VITALS: BP 115/62; PULSE 63; RESP 17; TEMP 98.3; O2SAT 99
[2025-04-18] MEDS ORDERED: DOXY100C79 PO (17:49)
[2025-04-18] MEDS ORDERED: AUG875T PO (17:49)
== END 2025-04-18 18:02 | disposition home or self-care (01) | DRG 383 ==
LOC: EDBD 11:44 → ER 11:44 → OVERFLOW 23:31 → WEST WING 04-16 02:52
PROVIDERS: ADMIT Student in an Organized Health Care Education/Training Program; ATTEND Emergency Medicine
DX: L03.116 Cellulitis of left lower limb (principal); D64.9 Anemia, unspecified; F11.10 Opioid abuse, uncomplicated; E66.9 Obesity, unspecified; F43.20 Adjustment disorder, unspecified; Z68.28 Body mass index [BMI] 28.0-28.9, adult; F17.210 Nicotine dependence, cigarettes, uncomplicated; F19.90 Other psychoactive substance use, unspecified, uncomplicated; Z56.0 Unemployment, unspecified
CPT/HCPCS: 36415; 71045; 73700; 80048; 80053; 80061; 80202; 80307; 81001; 83036; 83605; 83880; 84443; 85025; 87040; 87086; 93971; 96365; 96375; 99291; G0378; J2405; J2470; J2543; J3490